=== PATIENT | female | born 1990 | race Caucasian/White ===

== ENCOUNTER → 2019-06-11 | Outpatient (REF) | payer OTHER | LOC: M SFHCLERA 20:55 | PROVIDERS: ATTEND Physician Assistant | DX: R50.9 Fever, unspecified (principal) ==

== ENCOUNTER → 2020-07-25 | Outpatient (CLI) | payer SELFPAY | LOC: M LABSMTC 14:14 | PROVIDERS: ATTEND Pediatrics | DX: Z11.52 Encounter for screening for COVID-19 (principal) ==